=== PATIENT | female | born 1995 | race Caucasian/White ===

== ENCOUNTER 2020-11-02 23:39 | Emergency (ER) | payer SELFPAY ==
[~2020-11-02] VITALS: Ht 170.2 cm; Wt 68.0 kg
[2020-11-02 23:39] VITALS: BP 141/78
--- NOTE | 2020-11-02 23:53 | NUR ---
PT CAME TO ER C/O CONSTIPATION X 8 DAYS, LAST BM TODAY. PT A/OX 4, RR EVEN AND UNLABORED. PT CONNCETED TO MONITOR AND POX.
[2020-11-03] MEDS ORDERED: NA PHOS,M-B/NA PHOS,DI-BA 1 EA ENEMA RC ONE ×2 (00:06→00:30)
[2020-11-03] MEDS ORDERED: MAGNESIUM CITRATE 296 ML BOTTLE ONE (00:06)
[2020-11-03] MEDS ORDERED: MAGNESIUM CITRATE 296 ML BOTTLE PO ONE (00:30)
--- NOTE | 2020-11-03 01:10 | NUR ---
PT REPORTED BM X1, MD AWARE
--- NOTE | 2020-11-03 01:46 | NUR ---
Patient discharged to home in stable condition. Written and verbal after care instructions given. Patient verbalizes understanding of instruction. ambulatory with a steady gait.
== END 2020-11-03 01:47 | disposition home or self-care (01) ==
LOC: ER 23:44
DX: K59.00 Constipation, unspecified (principal)

== ENCOUNTER 2021-11-11 20:24 | Emergency (ER) | payer SELFPAY ==
[~2021-11-11] VITALS: Ht 172.7 cm; Wt 81.6 kg
--- NOTE | 2021-11-11 20:52 | NUR ---
PT BIBSELF C/O PALPITATIONS. PT AAOX4 BREATHING EVENLY AND UNLABORED. PT STATES "IT FEELS LIKE MY HEART IS SKIPPING, I USUALLY CONVERT AFTER A FEW BEATS, BUT I HAVENT CONVERTED SINCE 1830 THIS EVENLY". PT ATTACHED TO [employer] AND POS. GIVEN BLANKET AND CALL LIGHT WITHIN REACH
--- NOTE | 2021-11-11 21:07 | NUR ---
[facility] PAGED PER SONNY ARDON.
--- NOTE | 2021-11-11 21:11 | NUR ---
NABILA GutiérrezG INITIATED, BLOOD DRAWN AND SENT TO LAB
[2021-11-11 21:22] LABS: BASOPHILS # (AUTO) 0.1 K/uL (0.0-0.2); BASOPHILS % (AUTO) 0.9 % (0.0-2.0); EOSINOPHILS % (AUTO) 2.5 % (0.0-6.0); HEMATOCRIT 33 % (33-45); HEMOGLOBIN 10.4 g/dL (11.5-14.8); LYMPHOCYTES # (AUTO) 2.6 K/uL (0.8-4.8); LYMPHOCYTES % (AUTO) 37.4 % (20.0-44.0); MEAN CORPUSCULAR HGB CONC 31 g/dl (31.0-36.0); MEAN CORPUSCULAR VOLUME 71 fL (82-100); MONOCYTES # (AUTO) 0.7 K/uL (0.1-1.30); MONOCYTES % (AUTO) 10.5 % (2.0-12.0); NEUTROPHILS # (AUTO) 3.4 K/uL (1.8-8.9); NEUTROPHILS % (AUTO) 48.7 % (43.0-81.0); PLATELET COUNT (AUTO) 211 K/uL (150-450); WHITE BLOOD COUNT (AUTO) 7.1 K/uL (4.3-11.0)
[2021-11-11 21:29] LABS: CALCIUM, SERUM 8.7 mg/dL (8.5-10.1); CARBON DIOXIDE 29 mmol/L (21-32); CHLORIDE 108 mmol/L (98-107); CREATININE 0.8 mg/dL (0.6-1.3); GLUCOSE 91 mg/dL (74-106); POTASSIUM 4.2 mmol/L (3.5-5.1); SODIUM SERUM 143 mmol/L (136-145); UREA NITROGEN, BLOOD 18 mg/dL (7-18)
[2021-11-11] MEDS ORDERED: ASPIRIN 325 MG TABLET PO ONE (21:30)
[2021-11-11] MEDS ORDERED: ASPIRIN 325 MG TABLET ONE (21:34)
--- NOTE | 2021-11-11 22:01 | NUR ---
Patient discharged to home in stable condition. Written and verbal after care instructions given. Patient verbalizes understanding of instruction. IV removed. Catheter intact and site benign. Pressure and 4x4 applied to site. No bleeding noted. Pt ambulatory with a steady gait
[2021-11-11 22:06] VITALS: BP 115/61
== END 2021-11-11 22:01 | disposition home or self-care (01) ==
LOC: ER 20:37
DX: I48.91 Unspecified atrial fibrillation (principal); J45.909 Unspecified asthma, uncomplicated
CPT/HCPCS: 36415; 71045-TC; 80048-TC; 84484-TC; 85025-TC

== ENCOUNTER 2022-04-02 14:46 | Emergency (ER) | payer BC ==
[~2022-04-02] VITALS: Ht 172.7 cm; Wt 81.6 kg
--- NOTE | 2022-04-02 15:15 | NUR ---
BIBS C/O feeling "faint" and states "my heart is skipping a beat." onset 1345, hx of a fib. AMBULATORY, PLACED ON BED, AAOX4, ATTACHED TO MONITOR NORMAL SINUS RHYTHYM [id number], BREATHING EVEN AND INLABORED SATURATING AT 98%RA.
--- NOTE | 2022-04-02 15:30 | NUR ---
AT BEDSIDE, REFUSED BLOOD WORKS.
--- NOTE | 2022-04-02 15:40 | NUR ---
PATIENT IS DISCHARGE BY DR RIBEIRO BUT PATIENT IS NOT IN BED 7 WHERE SHE WAS PLACED- FOR DISCHARGE INSTRUCTIONS.
[2022-04-02 15:58] VITALS: BP 130/70
== END 2022-04-02 15:45 | disposition home or self-care (01) ==
LOC: ER 15:10
DX: I48.91 Unspecified atrial fibrillation (principal); R00.2 Palpitations; J45.909 Unspecified asthma, uncomplicated